=== PATIENT | male | born 2000 | race Caucasian/White ===

== ENCOUNTER 2020-01-15 08:24 | Emergency (ER) | payer OTHER, SELFPAY ==
[2020-01-15] VITALS (14 sets, daily range): BP systolic 125–127; BP diastolic 68–87; PULSE 76–111; RESP 10–20; TEMP 36.4; O2SAT 97–100
[2020-01-15 08:32] LABS: Glucose Point of Care 219 (65-105)
--- NOTE | 2020-01-15 08:55 | ED.GENADULT ---
HPI - General Adult General Chief complaint: Unspecified Stated complaint: High blood sugar Time Seen by Provider: 01/15/20 08:44 Source: patient Mode of arrival: ambulatory Limitations: no limitations History of Present Illness HPI narrative: Patient is a 19-year-old male who presents to the emergency department with complaint of possible DKA. Patient is a type I diabetic. He reports having an episode of heartburn followed by vomiting and improvement in his symptoms about a day and a half ago. He states after vomiting he went to sleep feeling pretty well, but yesterday morning woke up feeling nauseated and noticed that his urine ketones were high. Patient tried drinking extra fluids and addressing his blood sugars to try and manage his ketones, but still has large amount of ketones in his urine this morning. Patient states he actually feels fairly well this morning. He is denying any current nausea, vomiting, or abdominal pain. He does report increased thirst. He said his blood sugars were running in the high 200s yesterday and was 180 this morning. Patient states his last episode of DKA was last year. Patient denies any fever, respiratory symptoms, wounds, or current illness symptoms. Onset (ago): day(s) Related Data Home Medications Medication Instructions Recorded Confirmed Tresiba U-100 Insulin 01/15/20 insulin lispro [Humalog KwikPen unit SUBCUT 01/15/20 Insulin] Allergies Allergy/AdvReac Type Severity Reaction Status Date / Time mold Allergy Mild Itching Verified 01/15/20 08:34 pollen extracts Allergy Mild Itching Verified 01/15/20 08:34 Dog Dander Allergy Mild Itching Uncoded 01/15/20 08:34 Dust Allergy Mild Itching Uncoded 01/15/20 08:34 [place] Tree Allergy Mild Itching Uncoded 01/15/20 08:34 Review of Systems Review of Systems: All systems reviewed & are unremarkable except as noted in HPI and below Constitutional: Constitutional: Denies fever(s) Respiratory: Respiratory: Denies cough and Denies dyspnea Gastrointestinal: Gastrointestinal: Denies abdominal pain, Reports diarrhea, Reports nausea and Reports vomiting Endocrine: Endocrine: Reports polydipsia and Reports polyuria PMFSH Past Medical History Medical History DKA (diabetic ketoacidoses) Type 1 diabetes Surgical History Surgical History History of tonsillectomy Status post myringotomy with tube placement of both ears Social History Social History (Updated 01/15/20 @ 08:58 by Neelima Resendiz MD) Smoking status: Never smoker Living arrangements: with family Comments Primary care provider Anayeli Milian NP Insurance Account Representative at [facility] Exam Const: General: cooperative, no acute distress and alert Nutritional Appearance: well nourished Orientation/consciousness: patient oriented x3 Limitations: no limitations Resp: Effort & Inspection: normal respiratory effort Auscultation: clear to auscultation bilaterally Cardio: Rate: tachycardic Rhythm: regular rhythm GI: GI Palp: Yes Soft to palpation and No Tenderness to palpation present (GI) Auscultation: normal bowel sounds Skin: General skin exam: normal color and no rashes or lesions noted Neuro: General: patient oriented x3 Cognition (Neuro): normal cognition Speech: normal speech Extrem: General: normal to inspection, full ROM and no clubbing, cyanosis or edema Psych: Mental Status: mental status grossly normal Affect: normal affect Attitude: cooperative Course Course Emergency Course: Patient without findings of DKA. Anion gap is 8. Patient is not acidotic. He does have ketones in his urine and was thus given 2 L of normal saline. 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 Patient advised to return to the ER if he has worsening
[2020-01-15] MEDS: SODIUM CHLORIDE 0.9% IV 1,000 ML 999 ML IV CONT ×2 (09:13→10:09)
[2020-01-15 09:18] LABS: Fractional Inspired Oxygen 21 %; HCO3 VBG 25.8 mEq/l (24.0-30.0); PCO2 VBG 42.9 mmHg (42.0-48.0); PO2 VBG 39.7 mmHg (35.0-45.0); pH VBG 7.397 (7.300-7.400)
[2020-01-15 09:20] LABS: Device ROOM AIR
[2020-01-15 09:31] LABS: Basophils Absolute Auto 0.1 K/mm3 (0.0-0.1); Basophils Percent Auto 1.2 % (0.2-1.2); Eosinophils Absolute Auto 0.1 K/mm3 (0-0.3); Eosinophils Percent Auto 2.4 % (0-4.4); Hematocrit 50.1 % (42.0-52.0); Hemoglobin 17.6 g/dL (14.0-18.0); Immature Granulocyte Absolute 0.02 K/mm3 (0.00-0.031); Immature Granulocyte Percent A 0.4 % (0-0.5); Lymphocytes Absolute Auto 2.37 K/mm3 (0.9-3.2); Lymphocytes Percent Auto 46.7 % (18.3-44.2); Mean Corpuscular HGB Conc 35.1 g/dl (32-36); Mean Corpuscular Hemoglobin 30.5 pg (26-34); Mean Corpuscular Volume 86.8 fl (80-100); Mean Platelet Volume 11.4 fl (7.4-10.4); Monocytes Absolute Auto 0.5 K/mm3 (0.1-0.6); Monocytes Percent Auto 10.2 % (2.6-8.5); Neutrophils Percent Auto 39.1 % (45.5-73.1); Platelet Count Result 191 k/mm3 (150-375); Red Blood Count 5.77 M/mm3 (4.6-6.20); Red Cell Distribution Width 13.4 % (11.5-14.5); White Blood Count 5.1 K/mm3 (4.5-10.0)
[2020-01-15 09:47] LABS: Alanine Aminotransferase 14 U/L (4-50); Albumin Level 4.2 g/dL (3.5-5.1); Alkaline Phosphatase 116 U/L (38-126); Aspartate Amino Transferase 26 U/L (17-59); Bilirubin,Total 0.5 mg/dL (0.2-1.3); Blood Urea Nitrogen 8 mg/dL (9-20); Calcium 9.2 mg/dL (8.4-10.2); Carbon Dioxide 26 mmol/L (22-30); Chloride 105 mmol/L (98-107); Estimated CRCL calculation 199 ml/min; Estimated Glomerular Filt Rate > 60; Glucose 209 mg/dL (75-110); Phosphorus 3.5 mg/dL (2.5-4.5); Potassium 3.5 mmol/L (3.4-5.0); Sodium 139 mmol/L (137-145)
[2020-01-15 09:49] LABS: Add Urine Microscopic? YES; Appearance Urine Clear (Clear); Bilirubin Urine Negative (Negative); Blood Urine Negative (Negative); Color Urine Yellow (Yellow); Glucose Urine UA 3+ mg/dL (Negative); Ketones Urine 2+ mg/dL (Negative); Leukocyte Esterase Ur Negative LEU/UL (Negative); Mucus Urine Rare /lpf; Nitrate Urine Negative (Negative); Protein Urine 1+ mg/dL (Negative); RBC Urine 0-2 /hpf (0-2); Urobilinogen Urine Negative mg/dL (<2.0); WBC Urine 0-3 /hpf
[2020-01-15 09:50] LABS: Specific Grav Ur 1.038 (1.001-1.035)
[2020-01-15 09:52] LABS: Beta-Hydroxybutyrate/Acetoacetate 0.94 mmol/L (0.02-0.27)
--- NOTE | 2020-01-20 08:18 | PC.NURSE ---
LATE ENTRY This note is being entered to document information to the patient's record. The following information was omitted on [01/16/20], by [Dominick Degroot RN]. IVNS liter infused and stopped at 1140. IV dc'd cat intact per this RN.
== END 2020-01-15 11:53 | disposition home or self-care (01) ==
PROVIDERS: Emergency Provider Emergency Medicine; PCP Nurse Practitioner Family
DX: E10.65 Type 1 diabetes mellitus with hyperglycemia (principal); R82.4 Acetonuria; Z79.4 Long term (current) use of insulin
CPT/HCPCS: 36415; 80053; 81001; 82010; 82803; 82948; 83735; 84100; 85025; 96360; 96361; 99283; J7030